=== PATIENT | female | born 1980 | race Asian ===

== ENCOUNTER 2021-09-28 18:57 | Emergency (ER) | payer MEDICAID ==
[~2021-09-28] VITALS: Ht 149.9 cm; Wt 74.0 kg
--- NOTE | 2021-09-28 19:17 | PHYS DOC ---
Adult General HPI HPI Patient is a 41-year-old female who presents to the emergency department with a chief complaint of high blood pressure at home, 200/110. States that she usually takes lisinopril at home, 10 mg but has been out and has not taken any in about 2 months. States that she just moved to [place] from [place] and has not establish care with a primary care physician. Denies any recent travels, traumas, illness, fevers, chest pain, shortness of breath, abdominal pain, nausea, vomiting, diarrhea. Denies any numbness/weakness/tingling. States she is eating and drinking normally for her. States he is making urine and stool normally for her. Denies any recent dyspnea on exertion, orthopnea, PND or edema. Review of Systems Review of Systems Review of systems otherwise unremarkable except noted in HPI Physical Exam Physical Exam Constitutional: Well developed, well nourished, no acute distress, non-toxic appearance. [] HENT: Normocephalic, atraumatic, bilateral external ears normal, oropharynx moist, no oral exudates, nose normal. [] Eyes: conjunctiva normal, no discharge. [] Neck: Normal range of motion, no tenderness, supple, no stridor. [] Cardiovascular:Heart rate regular rhythm, no murmur [] Lungs & Thorax: Bilateral breath sounds clear to auscultation [] Abdomen: soft, no tenderness, no masses, no pulsatile masses. [] Skin: Warm, dry, no erythema, no rash. [] Back: No tenderness, no CVA tenderness. [] Extremities: No tenderness, no cyanosis, no clubbing, ROM intact, no edema. [] Neurologic: Alert and oriented X 3, normal motor function, normal sensory function, able to sit, stand and walk without issue, no focal deficits noted. [] Psychologic: Affect normal, judgement normal, mood normal. [] EKG EKG [] Radiology/Procedures Radiology/Procedures [] Heart Score C/O Chest Pain: No Risk Factors: Risk Factors: DM, Current or recent (<one month) smoker, HTN, HLP, family history of CAD, obesity. Risk Scores: Risk Factors: DM, Current or recent (<one month) smoker, HTN, HLP, family history of CAD, obesity. Course & Med Decision Making Course & Med Decision Making Patient is a 41-year-old female who presents with a chief complaint of hypertension at home Vital signs notable for hypertension. Physical exam noted above. EKG with a rate of 78, QRS of 90, QTc of 462, no STEMI. Troponin not concerning. Given dose of labetalol. Given home dose of lisinopril. On reassessment patient blood pressure significantly improved and patient still asymptomatic. Discussed findings with patient and family. Advised the need of taking her blood pressure medicine to avoid health risks. Advised to follow-up in the morning with her primary care physician. Gave number for local primary care physician to establish care. Gave strict return precautions to the ED. Family grateful, verbalized understanding and agreed with plan of discharge. Dragon Disclaimer Dragon Disclaimer This electronic medical record was generated, in whole or in part, using a voice recognition dictation system. Departure Departure: Impression: Primary Impression: Hypertension Disposition: HOME / SELF CARE / HOMELESS Condition: STABLE Referrals: PCP,SHADI (PCP) ROSA MARIA FREITAS Patient Instructions: Hypertension Additional Instructions: Thank you for coming into the emergency department tonight and allowing us to take care of you. Please read the attached information carefully to go over things we discussed. Please take your blood pressure medicine as prescribed daily. Please follow-up first thing in the morning with your primary care physician or call the pharmacy care physician at the number provided to establish care here in [facility]. Please come back to the emergency department immediately with new or concerning symptoms as we discussed. Scripts Lisinopril (LISINOPRIL) 10 Mg Tablet 1 TAB PO DAILY for HTN, #30 TAB 5 Refills Prov: LAURIE JARRETT MD 09/28/21 LAURIE JARRETT MD Sep 28, 2021 19:17
[2021-09-28] MEDS ORDERED: LABETALOL 20 MG/4 ML DISP.SYRIN. IVP ONE ×2 (19:30→21:15)
[2021-09-28 19:52] LABS: BASO # 0.1 x10^3/uL (0.0-0.2); BASO % 1 % (0-3); EOS # 1.1 x10^3/uL (0.0-0.7); EOS % 13 % (0-3); HEMATOCRIT 38.3 % (36.0-47.0); HEMOGLOBIN 13.3 g/dL (12.0-15.5); LYMPH # 1.1 x10^3/uL (1.0-4.8); LYMPH % 13 % (24-48); MEAN CORPUSCULAR HEMOGLOBIN 31 pg (25-35); MEAN CORPUSCULAR HGB CONC 35 g/dL (31-37); MEAN CORPUSCULAR VOLUME 88 fL (79-100); MONO # 0.3 x10^3/uL (0.0-1.1); MONO % 4 % (0-9); NEUT # 5.5 x10^3uL (1.8-7.7); NEUT % 69 % (31-73); PLATELET COUNT 231 x10^3/uL (140-400); RED BLOOD COUNT 4.35 x10^6/uL (3.50-5.40)
[2021-09-28 20:00] LABS: CALCIUM 9.1 mg/dL (8.5-10.1); CREATININE 0.5 mg/dL (0.6-1.0); GFR 137.4; POTASSIUM 3.6 mmol/L (3.5-5.1)
--- NOTE | 2021-09-28 20:22 | EKG ---
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
[2021-09-28 21:13] VITALS: BP 205/109
[2021-09-28] MEDS ORDERED: LISI10TA16 PO (22:03)
[2021-09-28] MEDS ORDERED: LISINOPRIL 10 MG TABLET PO ONE (22:15)
== END 2021-09-28 22:08 | disposition home or self-care (01) ==
LOC: ER 18:57
DX: I10 Essential (primary) hypertension (principal)
CPT/HCPCS: 36415; 80048; 83735; 84484; 85025; 85379; 93005; 96374; 96376; 99284; J3490